=== PATIENT | male | born 1965 | race Two or more races ===

== ENCOUNTER 2018-04-19 12:35 | Inpatient (IN) | payer OTHER ==
[~2018-04-19] VITALS: Ht 177.8 cm; Wt 94.8 kg
[2018-04-19 17:42] LABS: Basophils # (auto) 0 uL; Basophils % (auto) 0.5 % (0.0-2.0); Eosinophils # (auto) 0.1 uL; Eosinophils % (auto) 1.1 % (0.0-7.0); Hematocrit 42.6 % (41.0-53.0); Lymphocytes # (auto) 2.2 uL; Lymphocytes % (auto) 25.1 % (10.0-50.0); Mean Corpuscular Hemoglobin 28.3 pg (28.0-32.0); Mean Corpuscular Hgb Conc. 32.8 g/dL (32.0-36.0); Mean Corpuscular Volume 86.2 fL (80.0-100.0); Monocytes # (auto) 0.7 uL; Monocytes % (auto) 8.6 % (0.0-12.0); Neutrophils # (auto) 5.6 uL; Neutrophils % (auto) 64.7 % (37.0-80.0); Nucleated Red Blood Cells % 0.1 %; Platelet Count (auto) 341 10^3/uL (140-450); Red Blood Cells 4.95 10^6/uL (4.5-5.90); White Blood Cell 8.6 10^3/uL (4.4-10.8)
[2018-04-19] MEDS ORDERED: SODIUM CHLORIDE 0.9% 2,850 ML IV ONE (17:45)
[2018-04-19] MEDS ORDERED: SODIUM CHLORIDE 0.9% 1,000 ML IV ONE (18:00)
[2018-04-19 18:01] LABS: Albumin 4.2 g/dL (3.4-5.0); BUN/Creatinine Ratio 16.7; Calcium 9.1 mg/dL (8.5-10.1)
[2018-04-19 18:04] LABS: Bilirubin, Total 0.6 mg/dL (0.2-1.0); Total Protein 8.9 g/dL (6.4-8.2)
[2018-04-20] MEDS ORDERED: NITROGLYCERIN 0.4 MG SL TAB SL PRN (00:45)
[2018-04-20] MEDS ORDERED: MORPHINE SULFATE 4 MG/ML SYR/VIAL IV PRN (00:45)
[2018-04-20] MEDS ORDERED: TEMAZEPAM 15 MG CAP PO PRN (00:45)
[2018-04-20 03:34] VITALS: BP 126/76
[2018-04-20] MEDS: SODIUM CHLORIDE 0.9% 1,000 ML IV SCH ×2 (03:45→16:18)
[2018-04-20 05:00] VITALS: BP 122/74
[2018-04-20 08:00] VITALS: BP_SYST 110; BP_SYST 119; BP_DIAS 84
[2018-04-20] MEDS ORDERED: ENOXAPARIN SOD 40 MG/0.4 ML SYRINGE SC SCH (10:00)
[2018-04-20] MEDS: FAMOTIDINE 20 MG TAB PO SCH ×2 (11:04→22:00)
[2018-04-20 12:00] VITALS: BP 104/50
[2018-04-20 17:00] VITALS: BP 110/55
[2018-04-20 22:59] VITALS: BP 100/58
[2018-04-21] MEDS: SODIUM CHLORIDE 0.9% 1,000 ML IV SCH ×2 (03:25→16:45)
[2018-04-21 05:43] LABS: Basophils # (auto) 0 uL; Basophils % (auto) 0.7 % (0.0-2.0); Eosinophils # (auto) 0.3 uL; Eosinophils % (auto) 3.7 % (0.0-7.0); Hematocrit 39.7 % (41.0-53.0); Lymphocytes # (auto) 1.8 uL; Lymphocytes % (auto) 25.7 % (10.0-50.0); Mean Corpuscular Hemoglobin 28.2 pg (28.0-32.0); Mean Corpuscular Hgb Conc. 32.8 g/dL (32.0-36.0); Monocytes # (auto) 0.7 uL; Monocytes % (auto) 9.6 % (0.0-12.0); Neutrophils # (auto) 4.3 uL; Neutrophils % (auto) 60.3 % (37.0-80.0); Nucleated Red Blood Cells % 0.1 %; Platelet Count (auto) 275 10^3/uL (140-450); Red Blood Cells 4.61 10^6/uL (4.5-5.90); Red Cell Distribution Width 13.5 % (11.8-14.3); White Blood Cell 7.1 10^3/uL (4.4-10.8)
[2018-04-21 05:46] VITALS: BP 98/56
[2018-04-21 05:58] LABS: Albumin 3.2 g/dL (3.4-5.0); BUN/Creatinine Ratio 12.5; Calcium 8.3 mg/dL (8.5-10.1)
[2018-04-21 06:00] LABS: Bilirubin, Total 0.5 mg/dL (0.2-1.0); Total Protein 7.1 g/dL (6.4-8.2)
[2018-04-21 08:00] VITALS: BP 118/73
[2018-04-21 08:33] VITALS: BP 118/73
[2018-04-21] MEDS: FAMOTIDINE 20 MG TAB PO SCH (10:01)
== END 2018-04-21 16:00 | disposition home or self-care (01) | DRG 951 ==
LOC: ER 12:35 → TELE 12:36 → TELE-WESTW 04-20 02:20 → WEST WING 04-20 23:43
PROVIDERS: ADMIT Nurse Practitioner; ATTEND Internal Medicine
DX: Z77.098 Contact with and (suspected) exposure to other hazardous, chiefly nonmedicinal, chemicals (principal); K76.0 Fatty (change of) liver, not elsewhere classified
CPT/HCPCS: 36415; 76705; 80053; 83735; 85025; 96360; 96361